=== PATIENT | male | born 1960 | race Caucasian/White ===

== ENCOUNTER 2021-10-01 12:12 | Outpatient (CLI) | payer BC ==
[2021-10-01 14:08] LABS: #Monocytes 0.3 10x3/uL (0.0-1.1); #Neutrophils 3.8 10x3/uL (1.5-8.4); %Basophils 0.4 % (0.0-2.0); %Eosinophils 0.2 % (0.0-6.0); %Lymphocytes 15.3 % (18.0-47.0); %Monocytes 6.6 % (0.0-10.0); %Neutrophils 76.9 % (40.0-75.0); Hemoglobin 14.3 g/dL (13.5-17.5); Mean Corpuscular HGB CONC 35.9 g/dL (32.0-36.0); Mean Corpuscular Hemoglobin 31.6 pg (27.0-33.0); Mean Corpuscular Volume 87.9 fl (81.2-95.1); Platelet Count 165 10x3/uL (150-450); RBC Distribution Width 12.4 % (11.5-14.5); Red Blood Cell (RBC) Count 4.53 10x6/uL (4.32-5.72)
[2021-10-01 14:18] LABS: Anion Gap 14 mmol/L (10-20); BUN (Urea Nitrogen) 13 mg/dL (8.4-25.7); Calc. Creatinine Clearance 0 mL/min (70-130); Calcium 9.1 mg/dL (7.8-10.44); Carbon Dioxide 26 mmol/L (22-29); Chloride 107 mmol/L (98-107); Estimated GFR 92; Glucose 94 mg/dL (70-105); Potassium 4.1 mmol/L (3.5-5.1); Sodium 143 mmol/L (136-145)
== END 2021-10-01 12:13 | disposition home or self-care (01) ==
LOC: LABBT 12:12
PROVIDERS: ATTEND Surgery
DX: Z01.812 Encounter for preprocedural laboratory examination (principal); K64.8 Other hemorrhoids; Z20.822 Contact with and (suspected) exposure to COVID-19
CPT/HCPCS: 80048; 85025; 87811

== ENCOUNTER 2021-10-04 07:58 | Day surgery (SDC) | payer BC ==
[2021-10-02 14:30] VITALS: BMI 32.3
[2021-10-04] MEDS ORDERED: Lidocaine 1% w/Epinephrine 1:100K 20 ML VIAL ONE (10:56)
[2021-10-04] MEDS ORDERED: Bupivacaine 0.25% HCL 30 ML VIAL ONE (10:56)
[2021-10-04] MEDS ORDERED: fentaNYL Citrate/PF 100 MCG/2 ML SYRINGE ONE (11:00)
[2021-10-04] MEDS ORDERED: SUGAMMADEX SODIUM 200 MG/2 ML VIAL ONE (11:01)
[2021-10-04] MEDS ORDERED: Sodium Chloride 0.9% 100 ML ONE (11:05)
[2021-10-04] MEDS ORDERED: cefOXitin 2 GM VIAL ONE (11:05)
[2021-10-04] MEDS ORDERED: Midazolam HCl 2 mg/2 ml Vial ONE (11:11)
[2021-10-04] MEDS ORDERED: Ondansetron PF 4 MG/2 ML Vial ONE (11:21)
[2021-10-04] MEDS ORDERED: Ketorolac Tromethamine 30 MG/ML VIAL ONE (11:21)
[2021-10-04] MEDS ORDERED: Glycopyrrolate 0.2 MG/ML 5 ML SYRINGE ONE (11:21)
[2021-10-04] MEDS ORDERED: Lidocaine 1% PF 5 ML VIAL ONE (11:21)
[2021-10-04] MEDS ORDERED: PROPOFOL 200 MG/20 ML VIAL ONE (11:21)
[2021-10-04] MEDS ORDERED: Dexamethasone 20 MG/5 ML VIAL ONE (11:21)
[2021-10-04] MEDS ORDERED: Rocuronium Bromide 10 MG/ML (10ML VIAL) ONE (11:21)
[2021-10-04] MEDS ORDERED: Phenylephrine 10 MG/ML VIAL ONE (11:21)
[2021-10-04] MEDS ORDERED: Lidocaine 2% 6 ML SYR ONE ×2 (11:33)
[2021-10-04] MEDS ORDERED: Labetalol HCl 100 MG/20 ML VIAL ONE (12:07)
== END 2021-10-04 14:10 | disposition home or self-care (01) ==
LOC: SDC 07:58
PROVIDERS: ATTEND Surgery
PROC: 06BY0ZC Excision of Hemorrhoidal Plexus, Open Approach (ICD-10-PCS; principal; 2021-10-04)
DX: K64.8 Other hemorrhoids (principal); Z79.899 Other long term (current) drug therapy; Z88.1 Allergy status to other antibiotic agents
CPT/HCPCS: 88304; J0694; J1100; J1885; J2250; J2370; J2405; J2704; J2710; J3490; S0020

== ENCOUNTER 2021-12-31 16:11 | Outpatient (CLI) | payer BC | END 2021-12-31 16:12 | disposition home or self-care (01) | LOC: CTENTCT 16:11 | PROVIDERS: ATTEND Otolaryngology Plastic Surgery within the Head & Neck | DX: J32.9 Chronic sinusitis, unspecified (principal) | CPT/HCPCS: 70486 ==